=== PATIENT | female | born 1965 | race Caucasian/White ===

== ENCOUNTER 2017-12-10 07:30 | Inpatient (IN) | payer BC ==
[~2017-12-10] VITALS: Ht 165.1 cm; Wt 110.5 kg
[2018-01-27] MEDS ORDERED: MULT-65 PO (13:51)
[2018-01-27] MEDS ORDERED: FERR325T18 PO (13:51)
--- NOTE | 2018-01-28 11:38 | MH ---
cc: Ernst Valle MD DATE OF ADMISSION: 01/29/2018 ADMITTING DIAGNOSES: Menorrhagia, dysmenorrhea and anemia due to multiple fibroids and a large prolapsing fibroid. HISTORY OF PRESENT ILLNESS: The patient is a 52-year-old single white female, para 1-1-0-2, referred to me on 09/19/[address] Nany Burgos. At that time, she had a 4-5 month history of very heavy bleeding with some cycles lasting up to 35 or more days. Her Pap smear that day was normal. A vaginal ultrasound exam that day revealed an enlarged uterus with a large fibroid 6-8 cm prolapsing through her cervix. A pelvic ultrasound on 09/30/2017 showed a uterus that measured 19.5 cm with multiple fibroids including some down to the lower segment and in the cervix. Right ovary could not be seen. The left was cystic 4.1 cm. Her laboratory studies showed anemia with a hemoglobin of 7.8, normal thyroid, normal FSH. Surgery was recommended and scheduled and then rescheduled by the patient. She is now admitted for hysterectomy. PAST MEDICAL HISTORY: Previous surgery, in 1972, she had ear tubes. She had a in 1991 and in 2001. MEDICATIONS: Vitamins. ALLERGIES: NONE. She has no illness. History of cocaine addiction. She has been drug-free for 7 years. Alcohol, none. Tobacco, none. Drugs, none. FAMILY HISTORY: Noncontributory. REVIEW OF SYSTEMS: Negative. PHYSICAL EXAMINATION: An obese white female. Vital signs stable. Height 5 feet 5 inches. Weight 241 pounds. HEENT: Normal. CHEST: Clear. HEART: Regular rate. BREASTS: Symmetrical. ABDOMEN: Benign. PELVIC: Vagina is normal. Cervix normal with a large fibroid prolapsing. Uterus is about 14-16 week size. Adnexa are nonpalpable. ASSESSMENT: As above. She is now admitted for CHUY/BSO. Dr. Lester in urology has been consulted to place stents. I have explained with her severe bleeding. She may well require transfusion before, during and after surgery. I explained the recovery and the need for postoperative ERT once she has recovered. The patient would like to proceed. MD JEOVANY Altamirano/WILBER , 09:41 AM , 10:01 AM
[2018-01-29] MEDS ORDERED: CHLORHEXIDINE GLUCONATE 2 % 1 PACK (2 CLOTHS) TOPICAL PRN (06:00)
[2018-01-29] MEDS ORDERED: ceFAZolin 2 GM PREMIX 50 ML IV SCH (06:00)
[2018-01-29] MEDS ORDERED: METOPROLOL TARTRATE 25 MG TAB PO PRN (06:00)
[2018-01-29] MEDS ORDERED: SODIUM CHLORID 0.9% 500 ML IV PRN (06:00)
[2018-01-29] MEDS ORDERED: LACTATED RINGER'S 1000 ML IV PRN (06:00)
[2018-01-29] MEDS ORDERED: ACETAMINOPHEN 1000 MG/100 ML 100 ML IV SCH (06:00)
[2018-01-29] MEDS ORDERED: POVIDONE IODINE 5% (ANTISEPSIS KIT) 4 APPLICATIONS EACH NARE PRN (06:00)
[2018-01-29] MEDS ORDERED: CEFAZOLIN INJ 2,000 MG in SODIUM CHLORIDE 0.9% INJ 100 ML IV SCH (06:30)
--- NOTE | 2018-01-29 08:09 | PD.OP ---
Operative Report Date of Surgery: Jan 29, 2018 Preoperative Diagnosis: Uterine fibroid Postoperative Diagnosis: Same Procedure: Cystoscopy with bilateral ureteral catheter insertion Anesthesia: APRIL Surgeon: Edmund Lesetr Doll Wig Maker(s): None Resident Surgeon: None Operation and Findings: 52-year-old female with findings of a large fibroid who elected to undergo total abdominal hysterectomy with bilateral salpingo-oophorectomy by Dr. Valle. Request for made for bilateral ureteral catheter insertion. Patient was brought to the operating room and placed in the dorsal lithotomy position. She was prepped and draped in usual sterile fashion received preprocedure antibiotics. Gen. endotracheal tube anesthesia was administered. 22 [place] Islander cystoscope was inserted in the bladder and mas cystoscopy did not reveal any abnormalities. The left ureteral orifice was identified and 5 [place] Islander retrograde catheter was inserted into the left ureteral orifice up difficulty. This was repeated again on the right side without difficulty. A Boland catheter was inserted and attached to the catheters. She tolerated the procedure well. Edmund Lester DO Jan 29, 2018 08:09
[2018-01-29] MEDS ORDERED: BUPIVACAINE LIPOSOME PF 1.3% 20 ML VIAL ONE (08:12)
[2018-01-29] MEDS ORDERED: PROMETHAZINE INJ 25 MG/ML VIAL IM PRN (10:30)
[2018-01-29] MEDS ORDERED: diphenhydrAMINE HCL 25 MG CAP PO PRN (10:30)
[2018-01-29] MEDS ORDERED: MORPHINE SULFATE 30 MG/30 ML PCA IV SCH (10:30)
[2018-01-29] MEDS ORDERED: NALOXONE HCL 0.4 MG/ML AMP IV PUSH PRN (10:30)
[2018-01-29] MEDS ORDERED: ONDANSETRON HCL 4 MG/2 ML VIAL IV PUSH PRN (10:30)
[2018-01-29] MEDS ORDERED: ZOLPIDEM TARTRATE 5 MG TAB PO PRN (10:30)
[2018-01-29] MEDS ORDERED: MORPHINE SULFATE 4 MG/ML INJ ONE (10:59)
[2018-01-29] MEDS: D5-1/2 NS + KCL 20 MEQ INJ 1,000 ML IV SCH ×2 (11:00→19:11)
[2018-01-29] MEDS ORDERED: *morphine SULFATE 8 MG/ML PERIprocedure ONLY ONE ×2 (11:11→11:19)
[2018-01-29] MEDS ORDERED: DEXAMETHASONE SOD PHOS 4 MG/ML VIAL IV ONE (12:00)
[2018-01-29] MEDS ORDERED: SODIUM CHLORIDE 0.9% 20 ML VIAL IV ONE (12:00)
[2018-01-29] MEDS ORDERED: GLYCOPYRROLATE 1 MG/5 ML SYRINGE IV PUSH ONE (12:00)
[2018-01-29] MEDS ORDERED: KETOROLAC TROMETHAMINE 30 MG/ML (IVP) VIAL IV PUSH ONE (12:00)
[2018-01-29] MEDS ORDERED: NEOSTIGMINE 5 MG/5 ML SYRINGE IV PUSH ONE (12:00)
[2018-01-29] MEDS ORDERED: ONDANSETRON HCL 4 MG/2 ML VIAL IV ONE (12:00)
[2018-01-29] MEDS ORDERED: LIDOCAINE HCL 1% PF 5 ML SYRINGE OTHER ONE (12:00)
[2018-01-29] MEDS: KETOROLAC TROMETHAMINE 30 MG/ML (IVP) VIAL IVP SCH ×2 (12:00→19:11)
[2018-01-29] MEDS ORDERED: LACTATED RINGER'S 1000 ML INJ 2,000 ML IV ONE (12:00)
[2018-01-29] MEDS ORDERED: PROPOFOL 200 MG/20 ML AMP IV ONE (12:00)
[2018-01-29] MEDS ORDERED: ONDANSETRON INJ 8 MG in DEXTROSE 5% IN WATER INJ 50 ML IV PUSH PRN ×2 (12:00)
[2018-01-29] MEDS ORDERED: ROCURONIUM INJ 50 MG/5 ML SYRINGE IV PUSH ONE (12:00)
[2018-01-29] MEDS ORDERED: DO NOT ADM ANY ANTICOAGULANT DRUGS PRN (12:15)
[2018-01-29 12:30] VITALS: BP 121/78; PULSE 86; RESP 16; TEMP 98.5; O2SAT 99
[2018-01-29] MEDS: ACETAMINOPHEN 1000 MG/100 ML VIAL IV SCH ×2 (14:00→22:47)
[2018-01-29 16:00] VITALS: BP 128/75; PULSE 81; RESP 16; TEMP 97.8; O2SAT 99
[2018-01-29] MEDS: DOCUSATE SODIUM 100 MG CAP PO SCH (18:00)
[2018-01-29 18:22] LABS: HEMATOCRIT 29.5 % (35.0-46.0); HEMOGLOBIN 9.5 GM/DL (11.6-15.3)
[2018-01-29 20:48] VITALS: BP 138/73; PULSE 67; RESP 17; TEMP 98.1
[2018-01-29] MEDS: PCA - TOTAL MG MORPHINE DELIVERED PER SHIFT SCH (22:00)
[2018-01-30 01:05] VITALS: BP 136/70; PULSE 74; RESP 18; TEMP 97.9
[2018-01-30] MEDS: KETOROLAC TROMETHAMINE 30 MG/ML (IVP) VIAL IVP SCH ×4 (01:11→18:04)
[2018-01-30] MEDS: DOCUSATE SODIUM 100 MG CAP PO SCH ×2 (01:11→13:05)
[2018-01-30] MEDS: D5-1/2 NS + KCL 20 MEQ INJ 1,000 ML IV SCH ×4 (04:32→23:59)
[2018-01-30 04:59] VITALS: BP 128/73; PULSE 79; RESP 18; TEMP 98
[2018-01-30] MEDS: ACETAMINOPHEN 1000 MG/100 ML VIAL IV SCH ×3 (06:03→22:07)
[2018-01-30 07:55] LABS: AUTOMATED NEUTROPHIL # 8.2 TH/MM3 (1.8-7.7); BASOPHIL % 0.2 % (0.0-2.0); EOSINOPHIL % 0.2 % (0.0-4.0); HEMOGLOBIN 8.5 GM/DL (11.6-15.3); LYMPH % 13.2 % (9.0-44.0); LYMPHOCYTE # 1.3 TH/MM3 (1.0-4.8); MEAN CELL VOLUME 78.5 FL (80.0-100.0); MEAN CORPUSCULAR HEMOGLOBIN 25.6 PG (27.0-34.0); MEAN CORPUSCULAR HGB CONC 32.6 % (32.0-36.0); MEAN PLATELET VOLUME 7.9 FL (7.0-11.0); MONO % 5.8 % (0.0-8.0); MONOCYTE # 0.6 TH/MM3 (0-0.9); NEUT % 80.6 % (16.0-70.0); PLATELET COUNT 393 TH/MM3 (150-450); RED BLOOD COUNT 3.31 MIL/MM3 (4.00-5.30); RED CELL DISTRIBUTION WIDTH 21.9 % (11.6-17.2); WHITE BLOOD COUNT 10.1 TH/MM3 (4.0-11.0)
[2018-01-30 08:20] LABS: BICARBONATE 24.7 MEQ/L (21.0-32.0); CALCIUM 7.6 MG/DL (8.5-10.1); CREATININE 0.78 MG/DL (0.50-1.00)
[2018-01-30 08:26] VITALS: BP 130/63; PULSE 71; RESP 16; TEMP 97.6; O2SAT 95
[2018-01-30] MEDS: PCA - TOTAL MG MORPHINE DELIVERED PER SHIFT SCH ×3 (09:34→22:00)
[2018-01-30 11:56] VITALS: BP 125/69; PULSE 74; RESP 20; TEMP 98; O2SAT 98
--- NOTE | 2018-01-30 14:43 | MP ---
cc: Ernst Valle MD DATE OF OPERATION: 01/29/2018 PREOPERATIVE DIAGNOSES: Menorrhagia, dysmenorrhea, and anemia secondary to multiple uterine fibroids and a large prolapsing fibroid. POSTOPERATIVE DIAGNOSES: Menorrhagia, dysmenorrhea, and anemia secondary to multiple uterine fibroids and a large prolapsing fibroid. PROCEDURE: Total abdominal hysterectomy and bilateral salpingo-oophorectomy. ANESTHESIA: General ET. SURGEON: Ernst Valle MD PRIMER AND POWDER CANNING LEADER: Amy Duran. ESTIMATED BLOOD LOSS FOR THE PROCEDURE: 250 mL FLUIDS: 2 liters crystalloid. BLOOD REPLACEMENT: Two units packed cells OBJECTIVE FINDINGS: Following induction of adequate general endotracheal anesthesia, the patient was prepped and draped supine on the operating table, dorsal lithotomy position, usual sterile fashion. Dr. Lester performed cystoscopy and bilateral stent placement and then scrubbed out. The abdomen, which had was elevated with a clear drape and covered with iodoform drape, was opened through a low transverse muscle cutting incision using the knife to cut down the skin to the fascia. The fascia opened transversely. The rectus muscle divided with the Bovie. The peritoneum opened sharply, and extended with the direct vision. An elastic retractor was placed which also served as a wound protector and the bowel was packed out of the field with moist laps. Uterus enlarged, about 16 weeks in size. The tubes with interruption. The ovaries were normal. [place] were clear. There were adhesions of the bladder anteriorly from the previous section x 2. Large Cami clamps were placed on each uterine cornua for traction. The left round ligament was suture ligated with 0 Vicryl and cut. The left ovarian pedicle was isolated, triply clamped with Lu, cut and ligated with a free tie 0 Vicryl x 2. Bladder flap taken down sharply, and the uterine vessels skeletonized on the left side. The same was done on the right side. The right uterine vessels were taken with the 3 Lu, cut, ligated with 0 Vicryl x 2 as on the left. The left and right cardinal taken with straight Terell clamp, cutting, and tying with 0 Vicryl. At this point this allowed me to amputate the uterine fundus from the cervix using the Bovie. The stalk of the prolapsing fibroid was severed with the Bovie to allow the fundus and tubes and ovaries to be removed. Cervix now held with Kochers. Uterosacral ligaments were taken with a straight Terell clamp on each side, clamping, cutting, ligating with 0 Vicryl in Lu fashion. At this point, it was possible to open the vagina anteriorly and excise the cervix from the vaginal cuff. The cuff was then held with Kochers. This allowed me to remove the fibroid about 8 cm in diameter through the vaginal cuff for permanent study. Each corner of the vaginal cuff was now closed and suspended to the respective uterosacral ligament with a modified Palacios stitch of 0 Vicryl. The remainder of the cuff was closed with a running locking stitch of 0 Vicryl. Additional sutures of 0 Vicryl were placed to reinforce the cuff where needed. Ureters were palpated and inspected free and clear of the field. Irrigation performed. There was no bleeding. Topical SNoW coagulant was packed into the area between the bladder flap and the cuff. All the laps and retractors removed. Counts were correct. The peritoneum was then closed from each corner to the midline with a running stitch of #1 PDS. Irrigation performed. The rectus muscles were packed with the SNoW anticoagulant tissue material and the fascia was closed with a running stitch of #1 PDS corner to midline and tied. The subcutaneous was now irrigated. It was quite thick about 10 cm in depth. A #7 mm SATISH drain was placed and brought out through a separate stab wound on the left side. The subcutaneous was closed with running stitch of 3-0 Vicryl and the skin approximated with the angelica. The drain was sutured in place. Sterile dressing applied and the left stent was removed from the bladder and ureter. All counts were correct. The patient was taken to the recovery room in good condition. Ernst Valle MD JAW/rt , 08:50 PM , 09:29 PM MABEL
[2018-01-30 16:00] VITALS: BP 133/62; PULSE 79; RESP 20; TEMP 97.6; O2SAT 98
[2018-01-30 20:00] VITALS: BP 139/68; PULSE 61; RESP 18; TEMP 98; O2SAT 97
[2018-01-31] VITALS: BP 132/72; PULSE 87; RESP 18; TEMP 98; O2SAT 92
[2018-01-31 04:00] VITALS: BP 136/66; PULSE 82; RESP 18; TEMP 98.1; O2SAT 96
[2018-01-31] MEDS: PCA - TOTAL MG MORPHINE DELIVERED PER SHIFT SCH ×3 (06:00→22:00)
[2018-01-31] MEDS: ACETAMINOPHEN 1000 MG/100 ML VIAL IV SCH ×3 (06:12→22:29)
[2018-01-31] MEDS: KETOROLAC TROMETHAMINE 30 MG/ML (IVP) VIAL IVP SCH ×5 (06:12→22:29)
[2018-01-31 07:00] VITALS: BP 120/56; PULSE 86; RESP 18; TEMP 98.3; O2SAT 96
[2018-01-31] MEDS: DOCUSATE SODIUM 100 MG CAP PO SCH ×3 (12:30→22:30)
[2018-01-31 12:41] VITALS: BP 131/71; PULSE 69; RESP 20; TEMP 97.5; O2SAT 98
[2018-01-31] MEDS: D5-1/2 NS + KCL 20 MEQ INJ 1,000 ML IV SCH ×2 (14:03→22:32)
[2018-01-31 16:10] VITALS: BP 125/51; PULSE 82; RESP 18; TEMP 97.7; O2SAT 93
[2018-01-31 20:42] VITALS: BP 149/68; PULSE 83; RESP 17; TEMP 97.7
[2018-02-01 00:37] VITALS: BP 186/88; PULSE 81; RESP 18; TEMP 97.7
[2018-02-01 02:27] VITALS: BP 158/84; PULSE 70
[2018-02-01 04:35] VITALS: BP 155/82; PULSE 72; RESP 17; TEMP 97.6
[2018-02-01] MEDS: PCA - TOTAL MG MORPHINE DELIVERED PER SHIFT SCH (06:00)
[2018-02-01] MEDS: KETOROLAC TROMETHAMINE 30 MG/ML (IVP) VIAL IVP SCH ×2 (06:06→11:31)
[2018-02-01] MEDS: ACETAMINOPHEN 1000 MG/100 ML VIAL IV SCH (06:06)
[2018-02-01 08:42] VITALS: BP 169/72; PULSE 81; RESP 17; TEMP 97.3; O2SAT 99
[2018-02-01 10:15] VITALS: BP 172/84
[2018-02-01] MEDS ORDERED: LABETALOL HCL 100 MG TAB PO ONE (11:00)
[2018-02-01] MEDS: DOCUSATE SODIUM 100 MG CAP PO SCH (11:31)
[2018-02-01 12:20] VITALS: BP 142/62; PULSE 84
--- NOTE | 2018-02-01 12:27 | HHI.DCPOC ---
Discharge Care Plan Report Symptoms to Your Doctor -Temperature above 100.5 degrees -Redness, of incision or excessive or foul smelling drainage -Unusual pain or calf pain -Increased vaginal bleeding -Painful or difficulty urinating -Feelings of extreme sadness or anxiety after 2 weeks Goals to Promote Your Health * To prevent worsening of your condition and complications * To maintain your health at the optimal level Directions to Meet Your Goals Take your medications as prescribed Follow your dietary instruction Follow activity as directed Ensure plenty of rest for recovery Drink fluids for hydration Keep your appointments as scheduled Take your immunizations and boosters as scheduled If your symptoms worsen call your PCP, if no PCP go to Urgent Care Center or Emergency Room Smoking is Dangerous to Your Health. Avoid second hand smoke Call the 24-hour crisis hotline for domestic abuse at Ernst Valle MD Feb 01, 2018 12:27
--- NOTE | 2018-02-01 15:05 | MD ---
cc: Ernst Valle MD DATE OF DISCHARGE: 02/01/2018 ADMITTING DIAGNOSIS: Menorrhagia, dysmenorrhea, and anemia secondary to large fibroids and a large prolapsing fibroid. HISTORY OF PRESENT ILLNESS: A 52-year-old single white female with a history of increasing menstrual flow and menstrual pain and progressive anemia. Ultrasound had showed multiple fibroids with uterine size of 19 cm. Her pelvic exam was pertinent for a baseball size fibroid prolapsing through the cervix. HOSPITAL COURSE: She is admitted on 01/29/2018. Urology was consulted to place stents. She underwent a CHUY/BSO. Postop did well with gradual advance of diet and activity. Discharged home in stable condition on 02/01/2018. She had mild elevated blood pressure prior to discharge and was placed on labetalol 100 mg p.o. b.i.d., given a prescription for Percocet 5 one to two p.o. every 4 hours p.r.n., #60 and Zofran ODT 8 mg p.o. q. 8 hours p.r.n. nausea and vomiting refill 1. She will take her vitamins and iron pills at home and was advised to use a laxative. Her SATISH drain was still productive and she will be instructed on draining and recording the output. We will remove that in the office in 4 days. She will call for any abnormal pain, bleeding, temperature, signs of infection. MD JEOVANY Altamirano/TL/rr , 11:03 AM , 01:36 PM
== END 2018-02-01 12:59 | disposition home or self-care (01) | DRG 742 ==
LOC: HSDI 01-29 05:28 → H1EA 01-29 11:47
PROVIDERS: ADMIT Obstetrics & Gynecology; ATTEND Obstetrics & Gynecology
PROC: 0UT90ZZ Resection of Uterus, Open Approach (ICD-10-PCS; 2018-01-29)
PROC: 0UB97ZZ Excision of Uterus, Via Natural or Artificial Opening (ICD-10-PCS; 2018-01-29)
PROC: 30233N1 Transfusion of Nonautologous Red Blood Cells into Peripheral Vein, Percutaneous Approach (ICD-10-PCS; 2018-01-29)
PROC: 0T9880Z Drainage of Bilateral Ureters with Drainage Device, Via Natural or Artificial Opening Endoscopic (ICD-10-PCS; 2018-01-29)
PROC: 0UT20ZZ Resection of Bilateral Ovaries, Open Approach (ICD-10-PCS; principal; 2018-01-29 07:22)
PROC: 0UT70ZZ Resection of Bilateral Fallopian Tubes, Open Approach (ICD-10-PCS; 2018-01-29 07:22)
DX: D25.9 Leiomyoma of uterus, unspecified (principal); Z68.41 Body mass index [BMI] 40.0-44.9, adult; N32.89 Other specified disorders of bladder; D27.1 Benign neoplasm of left ovary; F14.21 Cocaine dependence, in remission; D50.0 Iron deficiency anemia secondary to blood loss (chronic); N94.6 Dysmenorrhea, unspecified; N92.0 Excessive and frequent menstruation with regular cycle; N83.01 Follicular cyst of right ovary; E66.9 Obesity, unspecified; R03.0 Elevated blood-pressure reading, without diagnosis of hypertension; R94.31 Abnormal electrocardiogram [ECG] [EKG]
CPT/HCPCS: 36415; 36430; 80048; 80051; 84702; 85014; 85018; 85025; 86850; 86900; 86901; 86920; 88307; 93005; 94150; C1769; C9290; J0131; J0690; J1100; J1885; J2270; J2405; J2710; J3010; J3480; J7120; P9016

== ENCOUNTER → 2018-01-27 | Outpatient (CLI) | payer BC ==
[~2018-01-27] MED LIST: FERR325T18 PO; FLAG500T PO; MULT-65 PO
[2018-01-27 14:04] LABS: AUTOMATED NEUTROPHIL # 4.1 TH/MM3 (1.8-7.7); BASOPHIL % 0.7 % (0.0-2.0); EOSINOPHIL # 0.2 TH/MM3 (0-0.4); EOSINOPHIL % 3.1 % (0.0-4.0); HEMATOCRIT 23.7 % (35.0-46.0); HEMOGLOBIN 7.4 GM/DL (11.6-15.3); LYMPHOCYTE # 1.5 TH/MM3 (1.0-4.8); MEAN CELL VOLUME 77.3 FL (80.0-100.0); MEAN PLATELET VOLUME 7.8 FL (7.0-11.0); MONO % 6.6 % (0.0-8.0); MONOCYTE # 0.4 TH/MM3 (0-0.9); NEUT % 65.6 % (16.0-70.0); PLATELET COUNT 369 TH/MM3 (150-450); RED BLOOD COUNT 3.07 MIL/MM3 (4.00-5.30); RED CELL DISTRIBUTION WIDTH 24.5 % (11.6-17.2); WHITE BLOOD COUNT 6.2 TH/MM3 (4.0-11.0)
[2018-01-27 14:27] LABS: BICARBONATE 29.4 MEQ/L (21.0-32.0); CHLORIDE 108 MEQ/L (98-107); SODIUM (NA) 143 MEQ/L (136-145)
--- NOTE | 2018-01-28 20:53 | EKG ---
Date Performed: 01/27/2018 Time Performed: 13:41:41 PTAGE: 52 years EKG: Sinus rhythm POSSIBLE RIGHT VENTRICULAR CONDUCTION DELAY BORDERLINE ECG PREVIOUS TRACING : 10/27/2006 15.34 Since the previous tracing, no significant change noted DOCTOR: Andrew Brannon Interpretating Date/Time 01/28/2018 20:52:29
== END ==
LOC: CPRE 13:23
PROVIDERS: ATTEND Obstetrics & Gynecology
DX: Z01.812 Encounter for preprocedural laboratory examination (principal); Z01.810 Encounter for preprocedural cardiovascular examination; D25.9 Leiomyoma of uterus, unspecified; N92.0 Excessive and frequent menstruation with regular cycle; N94.6 Dysmenorrhea, unspecified; D50.0 Iron deficiency anemia secondary to blood loss (chronic); R94.31 Abnormal electrocardiogram [ECG] [EKG]
CPT/HCPCS: 36415; 80051; 84702; 85025; 86850; 86900; 86901; 86920; 93005